=== PATIENT | male | born 1970 | race African-American/Black ===

== ENCOUNTER 2019-05-30 14:27 | Emergency (ER) | payer MEDICAID ==
[~2019-05-30] VITALS: Ht 180.3 cm; Wt 86.2 kg
[2019-05-30 14:33] VITALS: Ht 180.3 cm; Wt 86.2 kg
[2019-05-30 17:57] VITALS: BP 139/75
== END 2019-05-30 17:57 | disposition home or self-care (01) ==
LOC: ED 14:27
DX: R11.2 Nausea with vomiting, unspecified (principal); R19.7 Diarrhea, unspecified; R50.9 Fever, unspecified; K92.1 Melena